=== PATIENT | female | born 1990 | race Caucasian/White ===

== ENCOUNTER 2019-03-01 03:35 | Observation (INO) ==
--- NOTE | 2019-03-01 03:33 | PROVIDER DOCUMENTATION ---
[id number] Abuse/Overdose - General Chief Complaint: Overdose Stated Complaint: OD Time Seen by Provider: 03/01/19 03:36 Source: patient, EMS Allergies/Adverse Reactions: Allergies Allergy/AdvReac Type Severity Reaction Status Date / Time tramadol Allergy Unknown Verified 11/08/12 17:48 Home Medications: Home Medication List Medication Instructions Recorded Confirmed Last Taken Type Sertraline HCl [Zoloft] 50 mg PO DAILY #30 tablet 03/17/12 04/15/12 09:00 Rx Zoloft 50 mg PO DAILY 03/17/12 03/17/12 04/15/12 09:00 History Azithromycin [Zithromax] 250 mg PO DIRECTED #6 tablet 11/08/12 Unknown Rx Brompheniramine/Pseudoephed/Dm 1 tsp PO 4XDAY PRN PRN #100 syrup 11/08/12 Unknown Rx [Bromfed Dm Cough Syrup] Methylprednisolone [Medrol Dosepak] 4 mg PO DIRECTED #1 package 11/08/12 Unknown Rx Sertraline [Zoloft] 50 mg PO DAILY #30 tablet 11/08/12 Unknown Rx - History of Present Illness-Drug/Alcohol Nature of Presenting Problem: Patient is a 28 year old white female who presents with altered mentation by EMS with reported overdose of muscle relaxer. Patient is currently arousable and appears drowsy. Patent reports she took muscle relaxer to get some rest. Review of Systems - Adult - REVIEW OF SYSTEMS - ADULT ROS:: limited per condition Constitutional: reports: see HPI Eyes: reports: no symptoms reported Ears, Nose, Mouth & Throat: reports: no symptoms reported Cardiovascular: denies: chest pain Respiratory: reports: no symptoms reported Gastrointestinal: denies: abdominal pain Genitourinary: reports: no symptoms reported Musculoskeletal: reports: no symptoms reported Integumentary: reports: no symptoms reported Psychiatric: reports: see HPI, depression Past History - Adult - PAST MEDICAL HISTORY-ADULT Review of Records: reports: Old Records Reviewed, Nursing Assessment Review, Medications Reviewed, Social history reviewed & non-contributory. Major Childhood Illnesses: reports: denies history Cardiovascular: reports: denies history Respiratory: reports: denies history Gastrointestinal: reports: denies history Genitourinary: reports: denies history Physical Exam-General - CONSTITUTIONAL General Appearance: obese, other (appears drowsy, responsive to voice) - EYES Eyes: other (pupils equal) - HEAD, EARS, NOSE, MOUTH & THROAT HENMT: normocephalic/atraumatic, moist mucous membranes - NECK Neck: non-tender, full range of motion, supple - RESPIRATORY Respiratory: lungs clear - CARDIOVASCULAR Cardiovascular: regular rate, rhythm - GASTROINTESTINAL (ABDOMEN) Abdominal Exam: non tender, soft - LYMPHATIC Lymphatic: no adenopathy - MUSCULOSKELETAL Back Exam: normal inspection, no CVA tenderness Extremity: normal range of motion, non-tender Peripheral Pulses: radial (R): 2+, radial (L): 2+ - SKIN Integumentary: normal color, normal turgor, warm/dry - PSYCHIATRIC Psych/Mental Status: depressed affect Progress - PLAN OF CARE/RESULTS Progress/Plan/Lab Results: Vital Signs - 8 hr 03/01/19 03:07 03/01/19 03:39 Temperature 98.6 F 98.6 F Pulse Rate 68 67 Respiratory Rate 19 19 Blood Pressure 98/59 96/62 O2 Sat by Pulse Oximetry 97 99 Laboratory Results - last 24 hr 03/01/19 03/01/19 03/01/19 03:25 03:25 03:25 WBC 12.04 H RBC 4.05 L Hgb 12.9 Hct 38.6 MCV 95.3 MCH 31.9 H MCHC 33.4 RDW Std Deviation 14.2 Plt Count 304 MPV 10.1 Immature Gran % (Auto) 0.2 Neut % (Auto) 72.5 Lymph % (Auto) 18.8 L Moody % (Auto) 6.6 Eos % (Auto) 1.7 Baso % (Auto) 0.2 Immature Gran # (Auto) 0.02 Neut # (Auto) 8.74 H Lymph # (Auto) 2.26 Moody # (Auto) 0.80 H Eos # (Auto) 0.20 Baso # (Auto) 0.02 Specimen Type Sample Site pH pCO2 pO2 HCO3 Base Excess Oxyhemoglobin ABG O2 Sat (Calculated) ABG O2 Saturation ABG Carboxyhemoglobin ABG Methemoglobin Jared Test A-a O2 Difference Total Hemoglobin Lactate Liter Flow Blood Gas Modality FiO2 % Sodium 137 Potassium 3.8 Chloride 102 Carbon Dioxide 21 L Anion Gap 14 BUN 16 Creatinine 0.8 Estimated GFR/1.73 m2 > 60 BUN/Creatinine Ratio 20 Glucose 89 Calculated Osmolality 274 Calcium 9.3 Total Bilirubin < 0.15 L AST 13 ALT 11 Alkaline Phosphatase 65 Total Protein 7.2 Albumin 4.4 Globulin 3.0 Albumin/Globulin Ratio 2.0 Urine Source Urine Color Urine Clarity Urine pH Ur Specific [place] Urine Protein Urine Ketones Urine Blood Urine Nitrite Urine Bilirubin Urine Urobilinogen Urine Microscopic RBC Urine WBC Urine Microscopic WBC Ur Epithelial Cells Urine Crystals Urine Bacteria Urine Casts Urine Yeast Urine Glucose Urine Test Salicylates < 3.00 L Urine Opiates Screen Ur Oxycodone Screen Urine Methadone Screen U Propoxyphene Qual Acetaminophen < 1.2 L Ur Barbituates Screen Ur Tricyclics Screen Ur Phencyclidine Scrn Ur Amphetamines Screen U Methamphetamines Scrn U Benzodiazepines Scrn Urine Cocaine Screen U Cannabinoids Screen Plasma/Serum Ethyl Alc 23 H 03/01/19 03/01/19 03/01/19 03:30 03:30 03:30 WBC RBC Hgb Hct MCV MCH MCHC RDW Std Deviation Plt Count MPV Immature Gran % (Auto) Neut % (Auto) Lymph % (Auto) Moody % (Auto) Eos % (Auto) Baso % (Auto) Immature Gran # (Auto) Neut # (Auto) Lymph # (Auto) Moody # (Auto) Eos # (Auto) Baso # (Auto) Specimen Type Sample Site pH pCO2 pO2 HCO3 Base Excess Oxyhemoglobin ABG O2 Sat (Calculated) ABG O2 Saturation ABG Carboxyhemoglobin ABG Methemoglobin Jared Test A-a O2 Difference Total Hemoglobin Lactate Liter Flow Blood Gas Modality FiO2 % Sodium Potassium Chloride Carbon Dioxide Anion Gap BUN Creatinine Estimated GFR/1.73 m2 BUN/Creatinine Ratio Glucose Calculated Osmolality Calcium Total Bilirubin AST ALT Alkaline Phosphatase Total Protein Albumin Globulin Albumin/Globulin Ratio Urine Source CATH Urine Color YELLOW Urine Clarity CLEAR Urine pH 5.0 Ur Specific [place] 1.010 Urine Protein NEGATIVE Urine Ketones NEGATIVE Urine Blood NEGATIVE Urine Nitrite NEGATIVE Urine Bilirubin NEGATIVE Urine Urobilinogen NORMAL Urine Microscopic RBC <10 Urine WBC NEGATIVE Urine Microscopic WBC <10 Ur Epithelial Cells <10 Urine Crystals NONE SEEN Urine Bacteria 1+ Urine Casts NONE SEEN Urine Yeast NONE SEEN Urine Glucose NEGATIVE Urine Test NEGATIVE Salicylates Urine Opiates Screen NONE DETECTED Ur Oxycodone Screen NONE DETECTED Urine Methadone Screen NONE DETECTED U Propoxyphene Qual NONE DETECTED Acetaminophen Ur Barbituates Screen NONE DETECTED Ur Tricyclics Screen NONE DETECTED Ur Phencyclidine Scrn NONE DETECTED Ur Amphetamines Screen PRESUMPTIVE POSITIVE A U Methamphetamines Scrn NONE DETECTED U Benzodiazepines Scrn NONE DETECTED Urine Cocaine Screen NONE DETECTED U Cannabinoids Screen NONE DETECTED Plasma/Serum Ethyl Alc 03/01/19 03:32 WBC RBC Hgb Hct MCV MCH MCHC RDW Std Deviation Plt Count MPV Immature Gran % (Auto) Neut % (Auto) Lymph % (Auto) Moody % (Auto) Eos % (Auto) Baso % (Auto) Immature Gran # (Auto) Neut # (Auto) Lymph # (Auto) Moody # (Auto) Eos # (Auto) Baso # (Auto) Specimen Type ARTERIAL Sample Site R RADIAL pH 7.37 pCO2 40 pO2 122 H HCO3 23.2 Base Excess -2.0 Oxyhemoglobin 90.9 L ABG O2 Sat (Calculated) 15.8 ABG O2 Saturation 98.6 ABG Carboxyhemoglobin 5.90 H* ABG Methemoglobin 1.9 H Jared Test YES A-a O2 Difference 28.0 Total Hemoglobin 12.2 Lactate 1.10 Liter Flow 2.0 Blood Gas Modality CANNULA FiO2 % 28.0 Sodium Potassium Chloride Carbon Dioxide Anion Gap BUN Creatinine Estimated GFR/1.73 m2 BUN/Creatinine Ratio Glucose Calculated Osmolality Calcium Total Bilirubin AST ALT Alkaline Phosphatase Total Protein Albumin Globulin Albumin/Globulin Ratio Urine Source Urine Color Urine Clarity Urine pH Ur Specific [place] Urine Protein Urine Ketones Urine Blood Urine Nitrite Urine Bilirubin Urine Urobilinogen Urine Microscopic RBC Urine WBC Urine Microscopic WBC Ur Epithelial Cells Urine Crystals Urine Bacteria Urine Casts Urine Yeast Urine Glucose Urine Test Salicylates Urine Opiates Screen Ur Oxycodone Screen Urine Methadone Screen U Propoxyphene Qual Acetaminophen Ur Barbituates Screen Ur Tricyclics Screen Ur Phencyclidine Scrn Ur Amphetamines Screen U Methamphetamines Scrn U Benzodiazepines Scrn Urine Cocaine Screen U Cannabinoids Screen Plasma/Serum Ethyl Alc Orders Category Date Time Status Admit - [facility] Routine AdmDCTranf 03/01/19 04:44 Active Cardiac Monitoring DIRECTED Care 03/01/19 03:26 Active Misc. NRSG Communication Order DIRECTED Care 03/01/19 04:00 Active Misc. NRSG Communication Order DIRECTED Care 03/01/19 04:47 Active Neurological Check Q2H Care 03/01/19 04:44 Active Resuscitation Status Routine Care 03/01/19 04:44 Ordered Urine Preg [ED: Urine Bedside] ORDERED Care 03/01/19 03:27 Active Vital Signs Order RTQ1H Care 03/01/19 04:44 Active Z-Document. for Tele Applied ORDERED Care 03/01/19 04:45 Active NPO Diet 03/01/19 04:46 Active ABG [RESP] Routine Lab 03/01/19 03:32 Completed ACETAMINOPHEN [TDM] Q4HR Lab 03/01/19 05:00 Uncollected ACETAMINOPHEN [TDM] Q4HR Lab 03/01/19 09:00 Uncollected ACETAMINOPHEN [TDM] Q4HR Lab 03/01/19 13:00 Uncollected ACETAMINOPHEN [TDM] Q4HR Lab 03/01/19 17:00 Uncollected ACETAMINOPHEN [TDM] Q4HR Lab 03/01/19 21:00 Uncollected ACETAMINOPHEN [TDM] Stat Lab 03/01/19 03:25 Completed ALCOHOL BLOOD Stat Lab 03/01/19 03:25 Completed CBC WITH ELECTRONIC DIFF [HEME] Stat Lab 03/01/19 03:25 Completed CMP [COMPREHENSIVE METABOLIC PANEL] [CHEM] Stat Lab 03/01/19 03:25 Completed TEST-URINE [PREG] Stat Lab 03/01/19 03:30 Completed SALICYLATES [TDM] Q4HR Lab 03/01/19 05:00 Uncollected SALICYLATES [TDM] Q4HR Lab 03/01/19 09:00 Uncollected SALICYLATES [TDM] Q4HR Lab 03/01/19 13:00 Uncollected SALICYLATES [TDM] Q4HR Lab 03/01/19 17:00 Uncollected SALICYLATES [TDM] Q4HR Lab 03/01/19 21:00 Uncollected SALICYLATES [TDM] Stat Lab 03/01/19 03:[address] W/POSS RFLX CULT [URINALYSIS] Stat Lab 03/01/19 03:30 Completed URINE CULTURE [RM] Routine Lab 03/01/19 04:[address]UG S[address]EN [address] Stat Lab 03/01/19 03:30 Completed 0.9% Sodium Chloride Inj [Ns] 1,000 ml Med 03/01/19 04:44 Active IV 150 mls/hr 0.9% Sodium Chloride Inj [Ns] 1,000 ml Med 03/01/19 04:00 Active IV 999 mls/hr 0.9% Sodium Chloride Inj [Ns] 1,000 ml Med 03/01/19 04:46 Active IV 999 mls/hr Dextrose 5%-0.45% NaCl Inj [D5 1/2 Ns] 250 ml Med 03/01/19 05:00 Ordered Norepinephrine [Levophed] 8 mg IV As Directed mls/hr Oxygen Device Routine Oth 03/01/19 04:46 Active Pulse Oximetry Stat Oth 03/01/19 03:29 Completed Telemetry [OM.EQ] Routine Oth 03/01/19 04:44 Active EKG [EKG] Stat Ther 03/01/19 03:27 Ordered Transfer/Admit Order [TRANSFER] Routine Transfer 03/01/19 04:47 Ordered Result Diagrams: 03/01/19 03:25 03/01/19 03:25 - CONSULTS/PCP/HOSPITALIST Notification #1 *Consult/PCP/Hospitalist*: Dr. Downs, hospitalist Time Discussed: 04:45 Reason/Comments: admit to ICU with suicide precautions Consult Disposition: Admit Departure - Departure Date of Disposition Decision: 03/01/19 Time of Disposition Decision: 04:49 DIAGNOSIS: Suicide attempt Hypotension Qualifiers: Hypotension type: unspecified hypotension type Qualified Code(s): I95.9 - Hypotension, unspecified Disposition: ADMITTED INPATIENT 09 Certified Medical Emergency: Emergent Condition: Stable Referrals and Follow-Ups: Favio Downs MD [Primary Care Provider] - - Critical Care Note This patient required my direct & personal management of CC.: Yes Total Time (mins): 65 Critical Care Statement: This patient required my direct personal management to treat or rule out processes, the absence of which, could potentiallly result in sudden, clinically significant life or limb threatening deterioration. Attestation - Physician/ ZAKI Attestation Patient care was provided by Advanced Practice Provider:: No The physician spent face to face time with patient:: Yes Advanced Practice Provider documentation review:: Supervising physician onsite and consulted in the evaluation and care of this patient. The physician did have a face to face encounter with the patient.
[2019-03-01 03:35] LABS: BASO# 0.02 X1000 (0.0-0.2); BASO% 0.2 % (0.0-0.8); EOS% 1.7 % (0.0-10.0); HEMATOCRIT 38.6 % (37.0-47.0); HEMOGLOBIN 12.9 g/dL (12.0-16.0); IMM GRAN# 0.02 X1000 (0.0-0.04); IMM GRAN% 0.2 % (0.0-0.5); LYMPH# 2.26 X1000 (1.2-3.4); LYMPH% 18.8 % (20.5-51.1); MCH 31.9 PG (27-31); MCHC 33.4 g/dL (33-37); MCV 95.3 FL (81-99); MONO% 6.6 % (1.7-9.3); MPV 10.1 FL (7.4-10.4); NEUT# 8.74 X1000 (1.4-6.5); NEUT% 72.5 % (42.2-75.2); PLT 304 X1000 (130-400); RBC 4.05 XMIL (4.2-5.4); RDW 14.2 % (11.5-14.5); WBC 12.04 X1000 (4.8-10.8)
[2019-03-01 03:51] LABS: UR AMPHETAMINES QUAL PRESUMPTIVE POSITIVE (NONE DETECT); UR BARBITUATES QUAL NONE DETECTED (NONE DETECT); UR BENZODIAZEPIN QUAL NONE DETECTED (NONE DETECT); UR CANNABINOIDS QUAL NONE DETECTED (NONE DETECT); UR COCAINE QUAL NONE DETECTED (NONE DETECT); UR METHADONE QUAL NONE DETECTED (NONE DETECT); UR METHAMPHETAMINE QUAL NONE DETECTED (NONE DETECT); UR OPIATES QUAL NONE DETECTED (NONE DETECT); UR OXYCODONE QUAL NONE DETECTED (NONE DETECT); UR PCP QUAL NONE DETECTED (NONE DETECT); UR PROPOXYPHENE QUAL NONE DETECTED (NONE DETECT); UR TCA QUAL NONE DETECTED (NONE DETECT)
[2019-03-01 03:52] LABS: BLOOD TYPE ARTERIAL; HCO3-(ACT) 23.2 mmoll (20.0-26.0); METHB 1.9 % (0.0-1.5); O2(CT) 15.8 mL/dL (15.0-23.0); O2HB 90.9 % (95.0-99.0); PCO2(98.6) 40 mmHg (35-45); PO2(98.6) 122 mmHg (60-100); SAMPLE BLOOD; SAO2 98.6 % (95.0-100.0); THB 12.2 g/dL (11.5-17.4); pH(98.6) 7.37 (7.35-7.45)
[2019-03-01 03:54] LABS: ALLEN TEST YES; MODALITY CANNULA
[2019-03-01 03:57] LABS: BILIRUBIN URINE NEGATIVE (NEGATIVE); BLOOD URINE NEGATIVE (NEGATIVE); CLARITY CLEAR (CLEAR); COLOR YELLOW; GLUCOSE URINE NEGATIVE (NEGATIVE); KETONE URINE NEGATIVE (NEGATIVE); LEUKOCYTES URINE NEGATIVE (NEGATIVE); NITRITE URINE NEGATIVE (NEGATIVE); PROTEIN URINE NEGATIVE (NEGATIVE); UROBILINOGEN URINE NORMAL
[2019-03-01] MEDS ORDERED: NS 1,000 ML IV ONE ×3 (04:00→04:46)
[2019-03-01 04:03] LABS: ACETAMINOPHEN < 1.2 ug/mL (10-30); AGAP 14; ALBUMIN 4.4 g/dL (3.5-5.0); ALKALINE PHOSPHATASE 65 U/L (32-104); BUN 16 mg/dL (8-22); CALCIUM 9.3 mg/dL (8.8-10.2); CHLORIDE 102 mmol/L (98-107); COSMO 274; CREATININE 0.8 mg/dL (0.5-0.9); ESTIMATED GFR > 60; GLUCOSE 89 mg/dL (70-104); GOT 13 U/L (10-30); GPT 11 U/L (10-36); POTASSIUM 3.8 mmol/L (3.5-5.1); SALICYLATES < 3.00 mg/dL (3-10); SODIUM 137 mmol/L (136-145); TCO2 21 mmol/L (25-35); TOTAL BILIRUBIN < 0.15 mg/dL (0.20-1.00); TOTAL PROTEIN 7.2 g/dL (6.3-8.3)
[2019-03-01 04:04] LABS: URINE BACTERIA 1+ /HFP; URINE EPITHELIAL CELLS <10 /HPF (<10)
[2019-03-01 04:05] LABS: URINE CAST NONE SEEN /LPF; URINE CRYSTAL NONE SEEN /HPF; URINE RBC <10 /HPF (<10); URINE SOURCE CATH; URINE WBC <10 /HPF (<10); URINE YEAST NONE SEEN /HPF
[2019-03-01] MEDS ORDERED: LEVOPHED 8 MG in D5 1/2 NS 250 ML IV SCH (05:00)
--- NOTE | 2019-03-01 08:48 | EKG Report ---
Test Performed on : 03/01/2019 03:59:06 AM Test Reason : pain Blood Pressure : / mmHG Vent. Rate : 067 BPM Atrial Rate : 067 BPM P-R Int : 158 ms QRS Dur : 092 ms QT Int : 398 ms P-R-T Axes : 023 054 023 degrees QTc Int : 420 ms Normal sinus rhythm. Normal ECG When compared with ECG of 19-MAR-2010 18:34, No significant change was found Unconfirmed Result
[2019-03-01 09:40] LABS: ACETAMINOPHEN < 1.2 ug/mL (10-30); SALICYLATES < 3.00 mg/dL (3-10)
[2019-03-01 13:49] LABS: ACETAMINOPHEN < 1.2 ug/mL (10-30); SALICYLATES < 3.00 mg/dL (3-10)
--- NOTE | 2019-03-01 16:54 | HISTORY AND PHYSICAL ---
CHIEF COMPLAINT: Suicide attempt, overdose. HISTORY OF PRESENT ILLNESS: This is a 28-year-old female who presented to the emergency room via EMS with altered mental status due to reported overdose of muscle relaxer. According to the triage the boyfriend told EMS that the patient wanted to kill herself that he tried to take the pills away while she was attempting to swallow a handful. He was unable to get the pills and she did actually swallow them. On arrival to the emergency room she was drowsy, lethargic. She did respond to voice although she did not follow commands. PAST MEDICAL HISTORY: Hypertension. PAST SURGICAL HISTORY: Unknown. SOCIAL HISTORY: Unknown. REVIEW OF SYSTEMS: Unable to obtain from the patient due to her lethargy. ALLERGIES: Per her chart has tramadol with unknown reaction. HOME MEDICATIONS: A list will be obtained by the nursing staff and once verified will review and restart as appropriate. PHYSICAL EXAM: This is a 28-year-old female who is lying in ICU in no distress. VITAL SIGNS: Blood pressure is 92/57, heart rate of 84, respirations 16, temperature is 98.2 degrees with room air saturations 97 to 99 percent. HEENT: Pupils are equal, round, react to light EOMs are intact sclerae anicteric. Head is normocephalic, atraumatic. Mucous membranes are moist. NECK: Supple with trachea midline. CARDIOVASCULAR: Regular rate and rhythm. S1, S2 appreciated. Calves are nontender bilateral with peripheral pulses palpable x4 extremities. PULMONARY: Breath sounds are clear. No increased work of breathing noted. CHEST: Rises and falls symmetric with respiration. PULMONARY: Breath sounds are clear with no increased work of breathing noted. GASTROINTESTINAL: Abdomen soft, nondistended with bowel sounds in all 4 quadrants. NEUROLOGIC: Pupils are equal, round, react to light. She moves extremities at random. She withdraws from pain. She does not follow commands at present she just mumbles no and at 1 time she covered her head with a blanket. LABS: WBC is 12 with hemoglobin 12.9, hematocrit 38.6 and platelets of 304,000. Sodium 137, potassium 3.8, BUN 16, creatinine 0.8, glucose of 89. Urinalysis is essentially negative. Urine drug screen is presumptive positive for amphetamines with blood alcohol 23, otherwise none detected. EKG shows sinus rhythm at a rate of 67. ASSESSMENT AND PLAN: 1. Drug overdose. intensive care unit for close monitoring. 2. Suicide attempt. At this time it is unknown if this was a suicide attempt. At 1 point it is documented that the patient stated that she just wanted to get some sleep. once she is medically cleared, evaluation by Sherley Quijano 3. Hypotension. blood pressure has been 92 to 106 systolic. Will continue to monitor. neuro checks once she is awake and alert we can start a diet as tolerated. Plan was discussed with Dr. Downs. Further treatments pending hospital course. Dictated by GIRMA Howard for Favio Downs MD cc: GIRMA Howard MD MTDD
[2019-03-01 17:44] LABS: ACETAMINOPHEN < 1.2 ug/mL (10-30); SALICYLATES < 3.00 mg/dL (3-10)
[2019-03-01] MEDS ORDERED: CYMBALTA PO ONE (17:50)
[2019-03-01] MEDS: PERCOCET-10 PO PRN (18:34)
--- NOTE | 2019-03-02 01:15 | HISTORY AND PHYSICAL ---
ADDENDUM: Patient seen and examined by myself. Full note dictated and discussed with nurse practitioner. Patient is a 28-year-old female who presented to the hospital after having taken several muscle relaxers. She notes that she just simply wanted to sleep. She currently is drowsy, difficult to arouse. We will admit her to the hospital, ICU, and we will follow. cc: Favio Downs MD
[2019-03-02] MEDS: PERCOCET-10 PO PRN ×2 (07:33→13:33)
[2019-03-02] MEDS ORDERED: CYMBALTA PO SCH (09:00)
[2019-03-02 10:19] LABS: HEMATOCRIT 34.8 % (37.0-47.0); HEMOGLOBIN 11.3 g/dL (12.0-16.0); MCH 31.4 PG (27-31); MCHC 32.5 g/dL (33-37); MCV 96.7 FL (81-99); MPV 10.1 FL (7.4-10.4); RBC 3.6 XMIL (4.2-5.4); RDW 14.7 % (11.5-14.5); WBC 6.97 X1000 (4.8-10.8)
[2019-03-02 10:47] LABS: AGAP 7; BUN 15 mg/dL (8-22); CALCIUM 8.4 mg/dL (8.8-10.2); CHLORIDE 110 mmol/L (98-107); COSMO 282; CREATININE 0.4 mg/dL (0.5-0.9); ESTIMATED GFR > 60; GLUCOSE 105 mg/dL (70-104); POTASSIUM 3.8 mmol/L (3.5-5.1); SODIUM 141 mmol/L (136-145); TCO2 24 mmol/L (25-35)
--- NOTE | 2019-03-02 11:27 | PROGRESS NOTE ---
DATE: 03/02/2019 SUBJECTIVE: Patient denies having any acute complaints this morning and feels well. OBJECTIVE: Vital Signs: Temperature 98.7 degrees, pulse 58 per minute, respiratory rate 19 per minute, blood pressure 100/54, pulse ox 97% on room air. General: Patient is alert and oriented x3. She does not appear to be in any acute distress. Cardiovascular System: First and second heart sounds are audible without any murmurs or gallops. Respiratory System: No respiratory distress noted. Bilateral lung air entry is good without any rales or rhonchi. Gastrointestinal System: Abdomen is benign. IMPRESSION: Suicidal attempt with drug overdose of muscle relaxers. The patient does not report any suicidal ideation at this time. She states that she was not trying to hurt herself, but it was after she go into an argument with her boyfriend and that she took these tablets and just wanted to go to sleep. PLAN: We are going to get labs including CBC and BMP this morning and, if her lab results are within normal limits, we are going to call Sherley Quijano for psychiatric evaluation. She is otherwise medically cleared, and therefore we do not need to have anything else done if her labs are within normal limits. cc: James Silva MD
[2019-03-02 13:02] VITALS: BP 132/85
--- NOTE | 2019-03-02 14:44 | DISCHARGE SUMMARY ---
ADMISSION DATE: 03/01/2019 DISCHARGE DATE: 03/02/2019 DISCHARGE DIAGNOSES: 1. Suicidal attempt with drug overdose with muscle relaxers. 2. Hypertension that has now improved. HOSPITAL COURSE: This is a 28-year-old female who presented to the emergency room with altered mental status after she reportedly overdosed herself with muscle relaxers. According to the patient, she was having an argument with her boyfriend and wanted to end that argument and just took those pills so that she could go to sleep. She denied having any suicidal ideation or any other issues like that when I saw her today. We medically cleared her, and her labs were within normal range today, after which Sherley Quijano was consulted who have signed a no-harm agreement with the patient and have cleared the patient to be discharged home. They are going to arrange outpatient counseling for the patient. Since the patient's condition is stable, she is going to be discharged home today. DISCHARGE MEDICATIONS: 1. Duloxetine 60 mg orally once daily. 2. Metoprolol 25 mg orally once daily. 3. Percocet 10 mg orally 3 times a day. 4. Trazodone 150 mg orally once daily at bedtime. FOLLOWUP: She will follow up with Dr. Downs, her PCP, in approximately 1 week. CONDITION: Stable. DISPOSITION: Home. cc: James Silva MD
== END 2019-03-02 15:20 | disposition home or self-care (01) ==
LOC: P.ICU 03:35 → P.ED 03:35 → SUATTDRO 05:09 → P.ICU 05:14
PROVIDERS: ATTEND Internal Medicine